=== PATIENT | male | born 1945 | race Caucasian/White ===

== ENCOUNTER 2018-01-05 08:44 | Emergency (ER) | payer OTHER, BC ==
[~2018-01-05] VITALS: Ht 170.2 cm; Wt 98.0 kg
[~2018-01-05 08:44] MED LIST: ACCUPRIL40 MG PO; BAYER CHILDREN'81 M1 PO; CINNAMON500 MG PO; COREG25 MG PO; DIOVAN160 MG PO; HYTRIN5 MG PO; INSPRA50 MG PO; METFORMIN HCL500 MG PO; NORVASC10 MG PO
[2018-01-05 10:38] LABS: BASOPHIL (%) 0.4 % (0-1); BASOPHIL COUNT 0.1 K/uL (0-0.1); EOSINOPHIL (%) 1.1 % (0-5); EOSINOPHIL COUNT 0.1 K/uL (0-0.3); HEMATOCRIT 34.3 % (38.0-50.0); HEMOGLOBIN 12.3 G/DL (12.5-16.6); IMMATURE GRANULOCYTE (%) 0.8 % (0.0-0.7); LYMPHOCYTE (%) 49.6 % (15-42); LYMPHOCYTE COUNT 6.6 K/uL (1.0-2.8); MCH 28.5 PG (29.0-34.0); MCHC 35.9 G/DL (30.0-36.0); MCV 79.6 FL (86-99); MONOCYTE (%) 3.9 % (3-12); MONOCYTE COUNT 0.5 K/uL (0-0.8); NEUTROPHIL (%) 44.2 % (45-76); NEUTROPHIL COUNT 5.9 K/uL (1.8-6.4); PLATELET COUNT 152 K/uL (156-360); RBC DIS.WIDTH-CV 13.1 % (11.8-14.6); RBC DIS.WIDTH-SD 37.5 % (39-53); RED BLOOD COUNT 4.31 M/uL (4.00-5.50); WHITE BLOOD COUNT 13.3 K/uL (4.1-10.2)
[2018-01-05 10:46] LABS: ALBUMIN 3.1 g/dL (3.2-4.8)
[2018-01-05 10:47] LABS: CHLORIDE 102 mEq/L (99-109); POTASSIUM 3.3 mEq/L (3.7-5.4); SODIUM 137 mEq/L (136-147)
[2018-01-05 10:49] LABS: GLUCOSE 312 mg/dL (70-99); TOTAL PROTEIN 5.2 g/dL (6.4-8.3)
[2018-01-05 10:51] LABS: TOTAL BILIRUBIN 0.6 mg/dL (0.0-1.0)
[2018-01-05 10:52] LABS: ALKALINE PHOSPHATASE 84 IU/L (3-129); CREATININE 1.7 mg/dL (0.6-1.3); GFR ESTIMATE (CALCULATED) 42 mL/min/ (58.99-99999)
[2018-01-05 10:54] LABS: AST (GOT) 10 IU/L (2-34); UREA NITROGEN (BUN) 23 mg/dL (9-23)
[2018-01-05 10:55] LABS: ALT (GPT) 15 IU/L (3-49)
[2018-01-05 12:05] VITALS: BP 169/91
== END 2018-01-05 12:06 | disposition home or self-care (01) ==
LOC: EME 08:44
PROVIDERS: Emergency Medicine
DX: I10 Essential (primary) hypertension (principal); E11.9 Type 2 diabetes mellitus without complications; E78.5 Hyperlipidemia, unspecified
CPT/HCPCS: 80053; 85025; 99281; 99284